=== PATIENT | female | born 1995 | race Two or more races ===

== ENCOUNTER 2024-09-10 00:44 | Emergency (ER) | payer MEDICAID, OTHER ==
[~2024-09-10] VITALS: Ht 160 cm; Wt 65.8 kg
[2024-09-10] MEDS ORDERED: HYDR-4209 PO (01:30)
[2024-09-10 01:46] VITALS: BP 124/76; TEMP 98.2; O2SAT 99
== END 2024-09-10 01:47 | disposition home or self-care (01) ==
LOC: ER 00:46
DX: O90.89 Other complications of the puerperium, not elsewhere classified (principal); G89.18 Other acute postprocedural pain; M54.9 Dorsalgia, unspecified